=== PATIENT | male | born 2000 | race Caucasian/White ===

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

== ENCOUNTER 2025-04-27 10:03 | Emergency (ER) | payer OTHER ==
[~2025-04-27] VITALS: Ht 177.8 cm; Wt 59.0 kg
[2025-04-27 10:10] VITALS: TEMP 98.5
[2025-04-27] MEDS ORDERED: INSULIN AS100 UNIT/3 (10:30)
[2025-04-27] MEDS ORDERED: GABAPENTIN300 MG (10:30)
[2025-04-27 10:38] LABS: BASOPHILS # (AUTO) 0.1 (0.0-0.1); BASOPHILS % 0.9 % (0.0-1.0); EOSINOPHILS % 0.5 % (0.0-6.0); HEMATOCRIT 46.4 % (38.2-49.6); HEMOGLOBIN 15.5 g/dL (14.0-18.0); LYMPHOCYTES # (AUTO) 1.5 (1.0-3.2); LYMPHOCYTES % 19.1 % (18.0-39.1); MEAN CORPUSCULAR HEMOGLOBIN 28.7 pg (28-32); MEAN CORPUSCULAR HGB CONC 33.4 g/dL (31-35); MEAN CORPUSCULAR VOLUME 85.8 fL (81-99); MONOCYTES # (AUTO) 0.3 (0.2-0.8); NEUTROPHILS % 75.1 % (38.7-80.0); PLATELET COUNT 470 x10e3/uL (140-360); RED BLOOD COUNT 5.41 x10e6/uL (4.3-5.7); RED CELL DISTRIBUTION WIDTH 13.6 % (11.7-14.4); WHITE BLOOD COUNT 7.95 x10e3/uL (4.8-10.8)
[2025-04-27] MEDS: LACTATED RINGER'S 1,000 ML INJ ONE ×2 (11:03→12:06)
[2025-04-27 11:38] LABS: ALBUMIN 4.5 g/dL (3.5-5.0); ALBUMIN/GLOBULIN RATIO 1.1 (0.8-2.0); ANION GAP 24.1 mmol/L (8-16); BILIRUBIN,TOTAL 0.9 mg/dL (0.2-1.2); CALCIUM 10.7 mg/dL (8.4-10.2); CREATININE, SERUM 1.13 mg/dL (0.72-1.25); TOTAL PROTEIN 8.7 g/dL (6.5-8.1)
[2025-04-27 11:39] LABS: POTASSIUM 3.1 mmol/L (3.5-5.1)
[2025-04-27 12:00] VITALS: PULSE 112; RESP 19; O2SAT 99
== END 2025-04-27 13:00 | disposition home or self-care (01) ==
LOC: ER 10:15
DX: E10.9 Type 1 diabetes mellitus without complications (principal); R11.2 Nausea with vomiting, unspecified; R42 Dizziness and giddiness; F17.210 Nicotine dependence, cigarettes, uncomplicated
CPT/HCPCS: 36415; 80053; 82948; 85025; 99283; J7121